=== PATIENT | female | born 1975 | race Caucasian/White ===

== ENCOUNTER 2025-01-29 17:31 | Inpatient (IN) | payer OTHER ==
[2025-01-29] MEDS ORDERED: OLANZapine 5 MG TAB PO PRN (17:53)
[2025-01-29] MEDS ORDERED: MAG HYDROX/AL HYDROX/SIMETH 355 ML BOTTLE PO PRN (17:53)
[2025-01-29] MEDS ORDERED: IBUPROFEN 600 MG TAB PO PRN (17:53)
[2025-01-29] MEDS ORDERED: MAGNESIUM HYDROXIDE 2,400 MG/30 ML CUP PO PRN (17:53)
[2025-01-29] MEDS ORDERED: hydrOXYzine HCL 25 MG TAB PO PRN (17:53)
[2025-01-29] MEDS ORDERED: haloperidoL 5 MG TAB PO PRN (23:01)
[2025-01-29] MEDS: LORazepam 1 MG TAB PO PRN (23:13)
[2025-01-30] MEDS ORDERED: DEXTROSE 50% SYRINGE 50 ML IVP PRN ×2 (01:12)
--- NOTE | 2025-01-30 01:24 | P.MDCNMH ---
<Dayana Torres - Last Filed: 01/30/25 01:20> History of Present Illness H&P Date: 01/30/25 Patient is a 49 year old female with diet-controlled diabetes, Dirk-Danlos syndrome, postural orthostatic tachycardia syndrome, colitis, seizure disorder who is admitted to [facility] for depression and suicidal ideation, seen today under medical consultation for medical management. Reportedly she had plans to go to a hotel and OD on her Ativan. She was supposed to see her therapist today but was concerned about her thoughts of suicide and went to [facility] for evaluation she was then transferred to our facility here for suicidal ideation with depression. Additionally, she had a positive tuberculin(unknown timeline) but a recent chest Xray was negative done at [facility]. She reports having lower extremity swelling usually at the end of the day and that goes away in the morning. She mentions having an echocardiogram which was reportedly normal. Denies fever, chills, shortness of breath, cough, chest pain, palpitations, abdominal pain, nausea, vomiting, hematuria, dysuria, hematochezia, melena, headache, slurred speech, numbness, tingling, lightheadedness, blurred vision, double vision. Vitals T 98 F, CO 77 bpm, RR 16, BP 120/82, SpO2 94% on room air Review of systems: Pertinent positives and negatives as discussed in HPI, a complete review of systems was performed and all other systems are negative. Social history: Tobacco: Denies use Alcohol: Denies use Recreational drugs: THC gummies Physical examination: Vital signs reviewed General: nontoxic, no distress, appears at stated age Derm: warm, dry, intact Head: atraumatic, normocephalic, symmetric Eyes: EOMI, anicteric sclera Mouth: no lip lesion, mucus membranes moist Cardiovascular: S1 S2 reg, no murmur Lungs: CTA bilateral, no rhonchi, no rales, no accessory muscle use Abdominal: soft, non-tender to palpation Extremities: b/l lower extremity edema, no cyanosis, clubbing Neuro: Alert, Oriented, Gross neurological examination did not reveal any focal deficits. Assessment/Plan: Patient is a 49 year old female with diet-controlled diabetes, Dirk-Danlos syndrome, postural orthostatic tachycardia syndrome who is admitted to [facility] for depression and suicidal ideation, seen today under medical consultation for medical management. #. Type II Diabetes mellitus, diet controlled Insulin sliding scale and ACHS blood glucose monitoring Obtain A1c Monitor for hypoglycemia #. Postural orthostatic tachycardia syndrome #. Seizure disorder #. Colitis #. Ehler Danlos syndrome #. History of spinal lumbar fusion #. Chronic back pain Per patient, she takes Prazosin, Flexeril, Rinvoq, Methylphenidate, Ativan, Trazodone at home Resume home meds once verified by pharmacy #. GI upset #. Constipation Maalox 30 mL p.o. every 4 hours as needed, milk of magnesia 2400 mg p.o. daily as needed #. Depression #. Suicidal ideation #. ADHD #. Insomnia Patient admitted to [facility] Currently on Haldol 5 mg p.o. every 6 hours as needed, Ativan 1 mg p.o. every 6 hours as needed per admitting psych team Tylenol and Motrin for pain management Monitor vital signs Monitor CBC, CMP Thank you for the consult. Please feel free to reach out in case of any questions. Dictation was produced using [employer] dictation software. please excuse any grammatical, word or spelling errors. Dayana Torres MD PGY-1 IM Past Medical History Past Medical History: Diabetes Mellitus Additional Past Medical History / Comment(s): Pt states she has managed her A1C & BSG levels with Diet/Lifestyle changes and is no longer Diabetic History of Any Multi-Drug Resistant Organisms: MRSA Date of last positivie culture/infection: 2004 MDRO Source:: Patient Past Surgical History: Breast Surgery, Tonsillectomy Additional Past Surgical History / Comment(s): Pt also reports Surgical History of: Right Shoulder ligament repair, Breast reduction, Spinal Lumbar Fusion Past Anesthesia/Blood Transfusion Reactions: No Reported Reaction Past Psychological History: Anxiety Additional Psychological History / Comment(s): Autism Smoking Status: Never smoker Past Alcohol Use History: None Reported Past Drug Use History: Marijuana Additional Drug Use History / Comment(s): Pt states has used THC Gummies to alleviate Anxiety - Past Family History Mother Family Medical History: Cancer Additional Family Medical History / Comment(s): Hx of Gastrointestinal Cancers on Maternal side Medications and Allergies Allergies Allergy/AdvReac Type Severity Reaction Status Date / Time erythromycin base Allergy Severe Rash/Hives Verified 01/29/25 17:44 Physical Exam Vitals: Vital Signs Temp Pulse Resp BP 01/29/25 22:46 98.0 F 77 16 120/82 Intake and Output 01/29/25 01/29/25 01/30/25 14:59 22:59 06:59 Other: Weight 75.5 kg Cranial Nerve Examination - Cranial Nerves Cranial Nerve I- Olfactory: Intact Cranial Nerve II- Optic: Intact Cranial Nerve III- Oculomotor: Intact Cranial Nerve IV- Trochlear: Intact Cranial Nerve V- Trigeminal: Intact Cranial Nerve - Abducens: Intact Cranial Nerve VII- Facial: Intact Cranial Nerve VIII- Auditory: Intact Cranial Nerve IX- Glossopharyngeal: Intact Cranial Nerve X- Vagus: Intact Cranial Nerve XI- Accessory: Intact Cranial Nerve XII- Hypoglossal: Intact <Brando Pablo - Last Filed: 01/30/25 06:04> History of Present Illness Attestation : Patient seen and examined with medical collections specialist. Agree with above assessment and plan. We will resume her home medication and keep patient on insulin sliding scale. Time spent : 35 min Physical Exam Vitals: Vital Signs Temp Pulse Resp BP 01/29/25 22:46 98.0 F 77 16 120/82 Intake and Output 01/29/25 01/29/25 01/30/25 14:59 22:59 06:59 Other: Weight 75.5 kg
[2025-01-30 07:24] LABS: Glucose,Whole Blood 94 mg/dL (70-110)
[2025-01-30] MEDS: INSULIN LISPRO (HumaLOG) 100 UNIT/ML 10 mL VL SQ SCH (07:52)
[2025-01-30 08:13] LABS: HCT 40.7 % (37.2-46.3); HGB 13.6 g/dL (12.0-15.0); MCH 30.9 pg (27.0-32.0); MCHC 33.4 g/dL (32.0-37.0); MCV 92.5 fL (80.0-97.0); Mean Platelet Volume 9.9 fL (9.5-12.2); Platelet Count 314 10*3/uL (140-440); RDW 14.8 % (11.5-14.5); WBC 6.01 10*3/uL (4.50-10.00)
[2025-01-30 08:25] LABS: ALT 15 U/L (4-34); AST 28 U/L (14-36); African American GFR (CKD) 84 (>60 ml/min/1.73 sqM); Albumin 4.7 g/dL (3.5-5.0); Alkaline Phosphatase 96 U/L (38-126); Anion Gap 9 mmol/L; Blood Urea Nitrogen 19 mg/dL (7-17); Calcium 9.7 mg/dL (8.4-10.2); Carbon Dioxide 23 mmol/L (22-30); Chloride 105 mmol/L (98-107); Glucose 91 mg/dL (74-99); Non-African American GFR(CKD) 72 (>60 ml/min/1.73 sqM); Sodium 137 mmol/L (137-145); Total Bilirubin 0.5 mg/dL (0.2-1.3); Total Protein 7.1 g/dL (6.3-8.2)
[2025-01-30] MEDS ORDERED: SIMETHICONE 125 MG PO PRN (11:09)
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
[2025-01-30 12:47] LABS: Glucose,Whole Blood 120 mg/dL (70-110)
[2025-01-30 17:32] LABS: Glucose,Whole Blood 85 mg/dL (70-110)
[2025-01-30 20:03] LABS: Glucose,Whole Blood 78 mg/dL (70-110)
[2025-01-30] MEDS: busPIRone HCl 5 MG TAB PO SCH (20:16)
[2025-01-30] MEDS: PRAZOSIN 1 MG CAP PO SCH (20:16)
[2025-01-30] MEDS: traZODone HCL 100 MG TAB PO SCH (20:16)
[2025-01-31 07:42] LABS: Glucose,Whole Blood 101 mg/dL (70-110)
[2025-01-31] MEDS: ACETAMINOPHEN TAB 325 MG TAB PO PRN (11:27)
--- NOTE | 2025-01-31 12:26 | P.PN ---
Progress Note - Text Progress Note Date: 01/31/25 Dictation was produced using [employer] dictation software. Please excuse any grammatical, word or spelling errors. Interval history: Patient was seen in her room and was directable and agreeable to speak with the board writer in the office for psychiatric follow-up. The patient states that she is feeling "not as good" states that she is having more anxiety since she is not aware of the rules, and she does not know about the shower schedule, states that she likes things to be in order, and get anxious when she does not have the schedule. States that she has been talking with her family, and they decided on that she is going to get her room back, states that her step daughter will be leaving and will stay with her grand father. States that depression and anxiety are at the low to moderate side, she rated depression at 1/10, and anxiety at 7/10. She denied any current SI/HI or self harm, denied any AVH. States that she is more anxious since there is many people in the unit. She has been compliant with her medication, she denied any side effects. States that her sleep was not that great since the bed was not comfortable. It is reported that she slept at least 7 hours uninterrupted last night. States that she has she is anxious about not talking her colitis medication Rinvoq and states that she was not told at [facility] that she has to bring it to the hospital. States that she lives about 4 [place] away. MENTAL STATUS EXAM: General Appearance: Patient appears to be stated age is alert, directable, and attempts to cooperate. Patient appears to have fair hygiene and grooming. Behavior: Patient is seated without any agitated behavior. Speech: Patient's speech is fluent and nonpressured. Mood/Affect: Patient reports their mood is " anxious", affect is congruent and constricted. Suicidality/Homicidality: Patient denies having any homicidal ideation intent or plan. Denies any suicidal ideations intent or plan Perceptions: Patient denies any visual hallucinations and denies any auditory hallucinations Though content/process: There is no evidence of any delusional thought content and thought process is linear and goal-directed. Memory and concentration: AOX3, grossly intact for the purposes of this session. Can spell "WORLD" backwards Judgment and insight: Fair IMPRESSIONS: Patient is a 49 years old female with past psychiatric history of anxiety, PTSD, autism spectrum disorder. The patient had suicidal thoughts prior to this admission, she felt overwhelmed since her home routine was changed after having her stepdaughter moving again with them. She used to have her room as a safety zone where she can do her daily walk and practice her coping skills however that was gone since she moved in. She denied any current suicidal, self-harm or homicidal thoughts or behavior, auditory or visual hallucination. visited yesterday and reported to the patient that they made some arrangement and stated daughter is moving out and the patient will get her room back. She is happy about the change. Today she is admitted to increasing anxiety since she is not taking her colitis medication which is not in our formulary and she lives 4 hours away, has no one to bring the medication to the hospital. She has been doing well overall, denied any depression, denied any AVH. She has an outpatient therapist which she would like to continue seeing. She is adjusting to the unit however finds it hard since there is too many peers in the unit and she feels anxious about it giving her ASD diagnosis. She has been compliant with her medication, denied side effects. Suicidal ideation Generalized anxiety disorder Autism spectrum disorder PTSD Adjustment disorder with anxious and depressed mood Rule out depressive disorder Assessment/Plan: - Patient continues to meet criteria for inpatient psychiatric admission for symptom stabilization and safety. Patient is admitted under voluntary status to [facility]HU for stabilization of psychiatric symptoms and safety. Patient has signed adult voluntary form and medication consent and is placed in patient's chart. The patient came in on the petition and clinical certification, she agreed to follow our recommendation, agreed to take medication as prescribed, she signed the voluntary form. -Medications : - Continue BuSpar 5 mg p.o. twice daily - Continue trazodone 100 mg p.o. at bedtime - Continue prazosin 5 mg p.o. hs -Ativan and Haldol PRN for agitation/aggression -Patient was counselled on cannabis (THC) and desired to cut back on use -Patient was informed of the risks, benefits and side effects of the medication and patient verbally consented to taking the medications. Patient signed med consent form and was placed in chart. -SW on board for discharge planning. Encourage patient to participate in groups to work on coping skills. The patient is tentative for discharge early next week if she continues to improve.
[2025-01-31 17:40] LABS: Glucose,Whole Blood 126 mg/dL (70-110)
[2025-01-31 20:02] LABS: Glucose,Whole Blood 101 mg/dL (70-110)
[2025-01-31] MEDS: CYCLOBENZAPRINE 10 MG TAB PO PRN (20:41)
[2025-02-01 07:41] LABS: Glucose,Whole Blood 101 mg/dL (70-110)
[2025-02-01 11:13] VITALS: BMI 28.7
[2025-02-01] MEDS: busPIRone HCl 10 MG TAB PO SCH (12:23)
--- NOTE | 2025-02-01 12:33 | P.PN ---
Progress Note - Text Progress Note Date: 02/01/25 Interval History: Patient was seen in her room and was directable and agreeable to speak with wr iter in the office. Patient notably was reading the book, stating that she has been keeping busy. Patient expressed anxiety related to her not having her medication for her colitis, she was encouraged to speak to her about bringing this up as the pharmacy does not have this med stock at this hospital however patient expressed issues with her reaching out to her to bring the medication as he has affairs to handle at home. She talked about her desire for routine and how her anxiety gets triggered when she deviates from this, directly related to her autism. Patient was encouraged to utilize coping skills when anxiety is triggered as she expresses difficulty being in this environment. She states her and her are developing an action plan for when she is overwhelmed in the future she is able to go to a calm quiet place. She talked about her past several psychotropic medication failures including MAOI however she states being unable to start this given her history of seizures. Patient rejected alternative meds to help with her pain and sleep. At this time patient denies any suicidal or homicidal ideations, intent or plan. Patient denies any auditory, visual hallucinations and denies any paranoia or delusions. Patient denies any side effects from the medications and has been compliant with meds. Mental Status Exam: General Appearance: Patient appears to be stated age is alert, directable, and cooperative. She is wearing glasses, has fair grooming and hygiene Behavior: Patient is calmly seated without any agitated behavior. Speech: Patient's speech is fluent and nonpressured. Mood/Affect: Mood is improving mildly, affect is congruent and constricted. Suicidality/Homicidality: Patient denies having any suicidal or homicidal ideation intent or plan. Perceptions: Patient denies any visual hallucinations and denies any auditory hallucinations Though content/process: There is no evidence of any delusional thought content and thought process is linear and goal-directed. Memory and concentration: AOX3, grossly intact for the purposes of this session Judgment and insight: Improving mildly Assessment Adjustment disorder with depressed and anxious mood Autism spectrum disorder PTSD Generalized anxiety disorder Plan: -Patient continues to meet criteria for inpatient psychiatric admission for symptom stabilization and safety. Patient has signed adult voluntary form and medication consent and was placed in patient's chart. -Medications: Increase BuSpar to 10 mg twice daily, continue trazodone 100 mg at bedtime for insomnia, prazosin 5 mg at bedtime for nightmares -When necessary Ativan and Haldol for agitation/aggression. -Labs: Reviewed -SW on board for discharge planning. Encouraged the patient to participate in milieu. Anticipate discharge home with on Saturday
[2025-02-01 12:46] LABS: Glucose,Whole Blood 111 mg/dL (70-110)
[2025-02-02 11:11] LABS: Glucose,Whole Blood 126 mg/dL (70-110)
--- NOTE | 2025-02-02 12:42 | P.PN ---
Progress Note - Text Progress Note Date: 02/02/25 Interval History: Patient was seen in her room and was directable and agreeable to speak with wr iter in the room. She states her was able to bring in her medication for her colitis which has caused some relief in her anxiety. She continues to express pain however, did try ice patches and Tylenol however they have not been super effective. Patient was able to open up about feelings of being unheard due to her chronic pain however she was able to identify an understanding with the limitations of being given this environment from her home environment. Patient was future oriented today. She has been keeping busy reading. At this time patient denies any suicidal or homicidal ideations, intent or plan. Patient denies any auditory, visual hallucinations and denies any paranoia or delusions. Patient denies any side effects from the medications and has been compliant with meds. Mental Status Exam: General Appearance: Patient appears to be stated age is alert, directable, and cooperative. She is wearing glasses Behavior: Patient is calmly seated without any agitated behavior. Speech: Patient's speech is fluent and nonpressured. Mood/Affect: Mood is improving mildly, affect is congruent and constricted. Suicidality/Homicidality: Patient denies having any suicidal or homicidal ideation intent or plan. Perceptions: Patient denies any visual hallucinations and denies any auditory hallucinations Though content/process: There is no evidence of any delusional thought content and thought process is linear and goal-directed. Memory and concentration: AOX3, grossly intact for the purposes of this session Judgment and insight: Improving mildly Assessment Adjustment disorder with depressed and anxious mood Autism spectrum disorder PTSD Generalized anxiety disorder Plan: -Patient continues to meet criteria for inpatient psychiatric admission for symptom stabilization and safety. Patient has signed adult voluntary form and medication consent and was placed in patient's chart. -Medications: Continue BuSpar 10 mg twice daily, trazodone 100 mg at bedtime for insomnia, prazosin 5 mg at bedtime for nightmares -When necessary Ativan and Haldol for agitation/aggression. -Labs: Reviewed -SW on board for discharge planning. Encouraged the patient to participate in milieu. Anticipate discharge home with tomorrow
[2025-02-03 00:37] VITALS: RESP 16
[2025-02-03 09:28] VITALS: BP 122/72; PULSE 90; TEMP 97.4
--- NOTE | 2025-02-03 12:08 | P.DS ---
Providers Date of admission: 01/29/25 22:43 Expected date of discharge: 02/03/25 Attending physician: Tram Arita MD Consults: 01/29/25 17:53 Consult Physician Routine Consulting Provider: Esther Colby Consult Reason/Comments: H & P w/medical managememt Do you want consulting provider notified?: Yes Primary care physician: Stated None - Discharge Diagnosis(es) (1) Adjustment disorder with mixed anxiety and depressed mood Current Visit: Yes Status: Acute Priority: High (2) Autism spectrum disorder Current Visit: Yes Status: Chronic Priority: Medium (3) PTSD (post-traumatic stress disorder) Current Visit: Yes Status: Acute Priority: Low (4) Generalized anxiety disorder Current Visit: Yes Status: Acute Priority: Low Hospital Course: Admission HPI: Admission note was completed by Dr. Omalley "Patient presented to the hospital for depression and suicidal ideation, she had plans to go to hotel and overdose on her Ativan. Per report patient was supposed to see her therapist yesterday however was concerned about her suicidal ideation and went to [facility] for evaluation, and she was transferred to [facility] for evaluation. Per chart review patient had a positive tuberculin test, unknown timeline, recent x-ray was negative at [facility]. Per clinical certification " patient admits to thoughts of self-harm with a plan to go to hotel and overdose on lorazepam, patient has a history of autism, PTSD, and anxiety. She follows with a therapist. She had an appointment to see her therapist today but was concerned for her safety so she came to the ED. She admitted to increase thoughts of self-harm for about a week." Per petition patient states " I parked a hotel and wanted to take my Ativan to hurt myself." Upon evaluation in the unit the patient was in her room, agreed to speak with the tech writer in the office. She states that she has been having a couple of rough weeks, and everything was overwhelming, states that "I just want to be done with it, everything is hard, I don't know how to explain it" "I just want to go to sleep and not waking up, I don't feel like anger or aggression, just overwhelmed." States that "I just like to retire from life." States that "If it is an option to live by myself I will do it." She states that autism makes her think about the definition of things, so killing her self is not the answer she just want to be along. States that she had a plan to go to a hotel, and take her medication to sleep, and "I was hoping not to wake up." States that she does not want to hurt her family. She states that she has been feeling that way since last fall, and she has been seeing therapist and psychiatrist through [facility], and she was feeling better, and was doing fine till last week. States that her routine is changed, and she usually has scheduled meals, states that her step daughter is and she regret inviting her to live with them, states that she work form home, and she has her own room, and since she moved in she does not have her own room, and not being able to have her own schedule and routine, causing her to have a lot of stress and anxiety. States that she bang her head to calm down, and is working on her coping skills however not having her own room is very stressful. She reported that she does not feel sad or depressed, she admitted to feeling hopeless, helpless. She denied any current SI/HI or self harm, she denied any previous history of suicide. She rated depression at 1/10. She states that she tried to harm herself as a teenager, she cut herself. She reported that she did not want to kill herself, however she want her anxiety to go away. States that she has been having insomnia since she was a teen, she started taking 10 mg THC gummy at night which has been helping. Appetite is on and off, she lost 10 ib over the last month. She admitted to feeling like to run away, and is overwhelmed all the time, she rated anxiety at 7/10. She states that every few months she can be sleeping for 1-2 hours at night for 3 days, she states that she feel tired during the day. Patient denies any flight of ideas racing thoughts and increased in goal directed behavior. She denied any AVH, paranoia or delusion. Patient admits to using THC for sleep, 10 mg at night. Denied any tobacco, alcohol, or any other substances. She states that she spoke to her and he is working on getting her room back when she go back home, she stats that she regret feeling that way and is willing to learn coping skills. She states that she is future oriented and is going to a cruise next week." Hospital course: Upon admission to the unit patient was directable and agreeable to commence treatment and signed adult voluntary form.. Patient got along well with other patients on the unit and followed unit protocol. Patient was compliant with the medications and denied any side effects throughout hospital course. Patient was started on BuSpar and this was increased to 10 mg twice daily for anxiety. She was continued on trazodone 100 mg at bedtime for insomnia, prazosin 5 mg at bedtime for nightmares. Patient spoke of her stressors and engaged in therapy both group and individual. Patient was also seen by medical team for history and physical exam. Throughout the course of the hospitalization patient gradually improved with regards to mood, anxiety, sleep and returned back to their baseline level of functioning. On the day of discharge patient denied any suicidal or homicidal ideations intent or plan denied any auditory or visual hallucinations. The patient denied any access to guns or weapons. Patient denied any paranoia and did not endorse any delusions. Patient does not have a significant history of substance abuse and was counseled on abstaining from all substances including alcohol and marijuana. Patient was also counseled on the medications and need for regular compliance and was encouraged to follow-up with their outpatient appointment for mental health and also for primary care. Prior to discharge a family meeting will be arranged by social service director to answer any questions and ensure safety upon discharge including making sure that gun s/weapons are either removed from the home or locked away. Patient to be discharged home with and will follow-up with [facility] Mental status exam: General Appearance: Patient appears to be stated age is alert, pleasant, and cooperative. Patient is in no acute distress and has fair hygiene and grooming Behavior: Patient is calmly seated without any agitated behavior. Speech: Patient's speech is fluent and nonpressured. Mood/Affect: Patient reports their mood is "better", affect is congruent and euthymic. Suicidality/Homicidality: Patient denies having any suicidal or homicidal ideation intent or plan. Perceptions: Patient denies any auditory or visual hallucinations. Though content/process: There is no evidence of any delusional thought content and thought process is linear and goal-directed. More future oriented Memory and concentration: AOX3, grossly intact for the purposes of this session. Can spell "WORLD" backwards correctly. Judgment and insight: Good Impression: Adjustment disorder with depressed and anxious mood Autism spectrum disorder PTSD Generalized anxiety disorder Plan: -Continue with discharge today as patient has improved and stabilized psych iatrically and is not currently an imminent threat to themself and/or others. -Continue medications: BuSpar 10 mg twice daily, trazodone 100 mg at bedtime, prazosin 5 mg at bedtime -Patient was counseled on the need for medication compliance and appropriate follow-up at mental health and also primary care for medical issues. Patient verbalized understanding and agreed. -Social work to help coordinate patients discharge today arrange for and conduct family meeting to ensure safety upon discharge and answer any questions/concerns. also to ensure safe home environment that guns/weapons are either removed from the home or locked away. Social work also to arrange for patients follow up appointments with [facility] for psychiatric care along with follow up with primary care provider. -Patient counseled on abstaining from recreational drugs and marijuana and alcohol. Was informed/educated on the adverse effects on their physical and mental health. Patient verbally agreed and understood. -Patient was instructed to return to the hospital or seek immediate medical care if their psychiatric or medical symptoms do worsen or reoccur. Abnormal Labs 01/30/25 01/30/25 01/31/25 07:47 12:45 12:37 BUN 19 H POC Glucose (mg/dL) 120 H 126 H 01/31/25 02/01/25 17:38 12:44 BUN POC Glucose (mg/dL) 126 H 111 H Allergies Allergy/AdvReac Type Severity Reaction Status Date / Time erythromycin base Allergy Severe Rash/Hives Verified 01/29/25 17:44 Vital Signs Temp 97.4 F L 02/03/25 09:00 Pulse 90 02/03/25 09:00 Resp 16 02/03/25 09:00 BP 122/72 02/03/25 09:00 Pulse Ox 99 02/03/25 09:00 FiO2 Patient Condition at Discharge: Stable Plan - Discharge Summary Discharge Rx Participant: No New Discharge Prescriptions: New busPIRone HCl [Buspar] 10 mg PO 0800,1300 30 Days #60 tab Continue Cyclobenzaprine [Flexeril] 10 mg PO HS PRN PRN Reason: grinding teeth Upadacitinib [Rinvoq] 30 mg PO DAILY Methylphenidate HCl [Methylphenidate HCl ER] 36 mg PO DAILY traZODone HCL 100 mg PO HS 30 Days #30 tab Prazosin [Minipress] 5 mg PO HS Simethicone [Gas-X] 125 mg PO DAILY PRN PRN Reason: Gi Upset Discharge Medication List Cyclobenzaprine [Flexeril] 10 mg PO HS PRN 01/30/25 [History] Methylphenidate HCl [Methylphenidate HCl ER] 36 mg PO DAILY 01/30/25 [History] Prazosin [Minipress] 5 mg PO HS 01/30/25 [History] Simethicone [Gas-X] 125 mg PO DAILY PRN 01/30/25 [History] Upadacitinib [Rinvoq] 30 mg PO DAILY 01/30/25 [History] busPIRone HCl [Buspar] 10 mg PO 0800,1300 30 Days #60 tab 02/03/25 [Rx] traZODone HCL 100 mg PO HS 30 Days #30 tab 02/03/25 [Rx] Follow up Appointment(s)/Referral(s): [facility] - 02/08/25 4:00 pm (Jayson Hoyos NP @ 16:00) [facility] [Other] - 1 Week [place], Therapy [Other] - 1 Week Patient Instructions/Handouts: Depression (DC), Anxiety (ED) Activity/Diet/Wound Care/Special Instructions: Avoid the use of street drugs and alcohol. Take all medications as prescribed. When you are in need of refills on your medications, please contact your medical provider and/or outpatient psychiatrist/provider to have this done. Please go to your scheduled outpatient appointment for aftercare treatment. If symptoms return or become worse, call the crisis line at and/or go to the nearest emergency room for evaluation. National Suicide Hotline [address] [facility] confidentiality statement: "The information contained in this communication, including attachments, is confidential, may be privileged, and is intended only for the use of the named recipient(s). Unauthorized use, disclosure, forwarding or copying is strictly prohibited and may be unlawful. If you have received this communication in error, please notify me IMMEDIATELY at the phone number or pager listed above. Discharge Disposition: HOME SELF-CARE
== END 2025-02-03 11:59 | disposition home or self-care (01) | DRG 882 ==
LOC: 3MHU 22:43
PROVIDERS: ADMIT Psychiatry & Neurology Psychiatry; ATTEND Psychiatry & Neurology Psychiatry
DX: F43.23 Adjustment disorder with mixed anxiety and depressed mood (principal); G90.A Postural orthostatic tachycardia syndrome [POTS]; E11.9 Type 2 diabetes mellitus without complications; G40.909 Epilepsy, unspecified, not intractable, without status epilepticus; Q79.60 Ehlers-Danlos syndrome, unspecified; R45.851 Suicidal ideations; F41.1 Generalized anxiety disorder; F43.10 Post-traumatic stress disorder, unspecified; F84.0 Autistic disorder; R76.11 Nonspecific reaction to tuberculin skin test without active tuberculosis; K52.9 Noninfective gastroenteritis and colitis, unspecified; G89.29 Other chronic pain; M54.9 Dorsalgia, unspecified; K59.00 Constipation, unspecified; F90.9 Attention-deficit hyperactivity disorder, unspecified type; G47.00 Insomnia, unspecified; Z98.1 Arthrodesis status; Z79.899 Other long term (current) drug therapy; Z88.1 Allergy status to other antibiotic agents; Z81.8 Family history of other mental and behavioral disorders
CPT/HCPCS: 80053; 83036; 85027